=== PATIENT | male | born 1965 | race African-American/Black ===

== ENCOUNTER 2018-06-08 16:39 | Inpatient (IN) ==
[2018-06-08 17:23] LABS: INFLUENZA A NEGATIVE (NEGATIVE); INFLUENZA B NEGATIVE (NEGATIVE)
[2018-06-08] MEDS ORDERED: ROCEPHIN 1 GM in NS 50 ML IV ONE (19:03)
[2018-06-08] MEDS ORDERED: MOTRIN PO ONE (19:04)
--- NOTE | 2018-06-08 19:06 | Diag Imaging Result Doc PS360 ---
EXAM: CHEST-2 VIEWS - 06/08/2018 HISTORY: cough, fever, green sputum TECHNIQUE: Chest two views COMPARISON: 09/10/2011 FINDINGS: Heart size appears upper normal. There is transvenous cardiac pacemaker again seen. There is lobulated perihilar consolidation on the right. The remainder lungs appear essentially clear. There is mild thickening of fissures similar to prior. There is no substantial pleural effusion or pneumothorax identified. IMPRESSION: Lobulated perihilar consolidation on the right which may relate to pneumonia or other atypical infection. Follow-up after treatment is recommended to exclude underlying mass lesion. Electronically signed by Collins Gibbs 06/08/2018 7:04 PM
[2018-06-08] MEDS ORDERED: ROCEPHIN 1 GM in NS 50 ML IM ONE (19:07)
[2018-06-08] MEDS ORDERED: ROCEPHIN 2 GM in NS 50 ML IM ONE (19:12)
[2018-06-08] MEDS ORDERED: ROCEPHIN IM ONE (19:18)
[2018-06-08] MEDS ORDERED: XYLOCAINE-MPF 1% INJ ONE (19:18)
[2018-06-08 19:44] LABS: BASO# 0.02 X1000 (0.0-0.2); BASO% 0.1 % (0.0-0.8); EOS# 0.02 X1000 (0.0-0.7); EOS% 0.1 % (0.0-10.0); HEMATOCRIT 31.3 % (42.0-52.0); HEMOGLOBIN 10.4 g/dL (14.0-18.0); IMM GRAN# 0.03 X1000 (0.0-0.04); IMM GRAN% 0.2 % (0.0-0.5); LYMPH# 1.48 X1000 (1.2-3.4); LYMPH% 10.6 % (20.5-51.1); MCH 28.3 PG (27-31); MCHC 33.2 g/dL (33-37); MCV 85.1 FL (81-99); MONO# 0.67 X1000 (0.11-0.59); MONO% 4.8 % (1.7-9.3); NEUT% 84.2 % (42.2-75.2); PLT 203 X1000 (130-400); RBC 3.68 XMIL (4.7-6.1); RDW 13.4 % (11.5-14.5); WBC 14.02 X1000 (4.8-10.8)
[2018-06-08 19:55] LABS: CALCIUM 9.3 mg/dL (8.8-10.2); CREATININE 1.3 mg/dL (0.7-1.2); POTASSIUM 3.5 mmol/L (3.5-5.1)
[2018-06-08] MEDS ORDERED: NS 1,000 ML IV SCH (22:12)
[2018-06-08] MEDS ORDERED: TESSALON PO PRN (22:12)
[2018-06-08] MEDS ORDERED: TYLENOL PO PRN (22:12)
[2018-06-09] MEDS: COREG PO SCH ×3 (00:10→21:45)
[2018-06-09] MEDS: ZOSYN 3.375 GM in NS 50 ML IV SCH ×4 (00:57→17:09)
[2018-06-09] MEDS: DOXYCYCLINE 100 MG in NS 250 ML IV SCH ×3 (02:09→21:21)
--- NOTE | 2018-06-09 02:46 | PROVIDER DOCUMENTATION ---
This chart was entered by Marnie Guerra Scribe, acting as scribe for Chloé Fox MD. HPI-General Adult - General Chief Complaint: Cold Symptoms Stated Complaint: FEVER / COUGH Time Seen by Provider: 06/08/18 18:20 Source: patient Allergies/Adverse Reactions: Patient Allergies Allergy/AdvReac Type Severity Reaction Status Date / Time No Known Allergies Allergy Verified 04/01/16 09:42 Home Medications: Home Medication List Medication Instructions Recorded Confirmed Last Taken Type Aspirin 81 mg PO DAILY 04/01/16 06/09/18 04/01/16 09:00 History Carvedilol 12.5 mg PO BID 04/01/16 06/09/18 04/05/16 21:00 History Omeprazole 20 mg PO DAILY@0700 04/01/16 06/09/18 04/05/16 21:00 History Aripiprazole 15 mg PO DAILY 06/09/18 06/09/18 Unknown History Fluoxetine HCl 80 mg PO DAILY 06/09/18 06/09/18 Unknown History Gabapentin 400 mg PO QHS 06/09/18 06/09/18 Unknown History Insulin Aspart [Novolog] 36 units SQ TID AC 06/09/18 06/09/18 Unknown History Metformin HCl 1,000 mg PO BID CC 06/09/18 06/09/18 Unknown History Sacubitril/Valsartan [Entresto 24 1 tab PO BID 06/09/18 06/09/18 Unknown History mg-26 mg Tablet] - History of Present Illness -Gen Adult Nature of Presenting Problems: 52 yom presents to ed w/cc hoarseness, dizziness, productive cough w/greyish green phlegm, and fever since last night. pt has had sick contacts (). pt has no nasal congestion, headache. pt has hx of DM and takes insulin. Review of Systems - Adult - REVIEW OF SYSTEMS - ADULT Constitutional: reports: see HPI, fever. denies: chills, fatique, night sweats Eyes: reports: no symptoms reported Ears, Nose, Mouth & Throat: reports: see HPI, hoarseness. denies: ear pain, throat pain, throat swelling Cardiovascular: reports: no symptoms reported Respiratory: reports: see HPI, cough, excessive sputum production (greyish green phlegm). denies: pleurisy, shortness of breath, wheezing Gastrointestinal: reports: no symptoms reported Genitourinary: reports: no symptoms reported Musculoskeletal: reports: no symptoms reported Integumentary: reports: no symptoms reported Neurological: reports: no symptoms reported Psychiatric: reports: no symptoms reported Endocrine: reports: no symptoms reported Hematologic/Lymphatic: reports: no symptoms reported Allergic/Immunologic: reports: no symptoms reported All Other Systems: Reviewed and Negative Past History - Adult - PAST MEDICAL HISTORY-ADULT Review of Records: reports: Old Records Reviewed, Nursing Assessment Review, Medications Reviewed, Social history reviewed & non-contributory. Major Childhood Illnesses: reports: history unknown Cardiovascular: reports: HTN, ID, pacemaker Respiratory: reports: denies history Gastrointestinal: reports: denies history Obstetrical/Gynecological: reports: denies history Genitourinary: reports: denies history Musculoskeletal: reports: denies history Neurological: reports: denies history Endocrine/Immune: reports: Diabetes Diabetes Type: Type 1 Other Conditions: reports: denies history - PRIOR SURGERIES/PROCEDURES Surgical/Procedure History: reports: appendectomy, cardiac stent - IMMUNIZATION STATUS Childhood Immunizations: See Nurse Assessment Flu Vaccine: See Nurse Assessment - FAMILY HISTORY Family History: diabetes - SOCIAL HISTORY Smoking: chew Provider spent 3-5 mins advising pt. on dangers of tobacco.: Discussed manners to quit use, and f/u contacts for add'l counseling. Substance Use: none/never Physical Exam-General - PHYSICAL EXAM-ADULT Initial Vital Signs Reviewed: Yes - CONSTITUTIONAL General Appearance: appears well, alert, no apparent distress - EYES Eyes: PERRL/EOMI - HEAD, EARS, NOSE, MOUTH & THROAT HENMT: moist mucous membranes, TMs normal, pharynx normal, other (hoarseness of voice.). negative: pharyngeal erythema, tonsillar exudate, TM abnormal - NECK Neck: non-tender, full range of motion, supple - RESPIRATORY Respiratory: other (decrease breath sound on the rt side, no crackles or wheeze) - CARDIOVASCULAR Cardiovascular: normal peripheral pulses, regular rate, rhythm - GASTROINTESTINAL (ABDOMEN) Abdominal Exam: normal bowel sounds, non tender, soft - MUSCULOSKELETAL Extremity: normal range of motion, non-tender, normal inspection - NEUROLOGIC Neurologic: grossly normal, no motor/sensory deficits Progress - PLAN OF CARE/RESULTS Progress/Plan/Lab Results: Vital Signs - 8 hr 06/08/18 16:49 Temperature 101.7 F H Pulse Rate 89 Respiratory Rate 20 Blood Pressure 112/68 O2 Sat by Pulse Oximetry 96 Laboratory Results - last 24 hr 06/08/18 16:51 Influenza A (Rapid) NEGATIVE Influenza B (Rapid) NEGATIVE Orders Category Date Time Status Flu [INFLUENZA SCREEN PL] Stat Lab 06/08/18 16:51 Completed Result Diagrams: 06/08/18 19:39 06/08/18 19:39 - XRAY 1 XRAY: Bilateral (IMPRESSION: Lobulated perihilar consolidation on the right which may relate to pneumonia or other atypical infection. Follow-up after treatment is recommended to exclude underlying mass lesion. Electronically signed by Collins Gibbs 06/08/2018 7:04 PM) XRAY Study: Chest Impression: Abnormal - CONSULTS/PCP/HOSPITALIST Notification #1 *Consult/PCP/Hospitalist*: Dr. Sibley Time Discussed: 19:46 Consult Disposition: Admit (Hx, PE, Dx. discussed with Dr. Sibley, Accepted.) Departure - Departure Date of Disposition Decision: 06/08/18 Time of Disposition Decision: 19:46 DIAGNOSIS: Pneumonia Qualifiers: Pneumonia type: due to unspecified organism Laterality: right Lung location: unspecified part of lung Qualified Code(s): J18.9 - Pneumonia, unspecified organism Disposition: ADMITTED INPATIENT 09 Certified Medical Emergency: Emergent Condition: Stable - Critical Care Note This patient required my direct & personal management of CC.: No Attestation - Physician/ CLAYTON Attestation Patient care was provided by Advanced Practice Provider:: No The physician spent face to face time with patient:: Yes Advanced Practice Provider documentation review:: Supervising physician onsite and consulted in the evaluation and care of this patient. The physician did have a face to face encounter with the patient. This chart was documented by the indicated scribe, (Marnie Guerra Scribe) and accurately reflects the services I performed and decisions made by me, Chloé Fox MD, as attested by the provider's signature.
[2018-06-09 03:26] LABS: BLOOD TYPE ARTERIAL; SAMPLE BLOOD
[2018-06-09 03:28] LABS: BE 6.5 mmoll (-3.0-3.0); METHB 1.2 % (0.0-1.5); O2(CT) 6.6 mL/dL (15.0-23.0); O2HB 95.7 % (95.0-99.0); PCO2(98.6) 40 mmHg (35-45); PO2(98.6) 78 mmHg (60-100); SAO2 99.9 % (95.0-100.0); THB 4.8 g/dL (11.5-17.4); pH(98.6) 7.49 (7.35-7.45)
[2018-06-09 03:29] LABS: ALLEN TEST YES; MODALITY ROOM AIR
[2018-06-09 05:44] LABS: BASO# 0.01 X1000 (0.0-0.2); BASO% 0.1 % (0.0-0.8); EOS# 0.02 X1000 (0.0-0.7); EOS% 0.1 % (0.0-10.0); HEMATOCRIT 29.1 % (42.0-52.0); HEMOGLOBIN 9.5 g/dL (14.0-18.0); IMM GRAN# 0.05 X1000 (0.0-0.04); IMM GRAN% 0.3 % (0.0-0.5); LYMPH# 1.94 X1000 (1.2-3.4); LYMPH% 13.5 % (20.5-51.1); MCH 27.6 PG (27-31); MCHC 32.6 g/dL (33-37); MCV 84.6 FL (81-99); MONO# 0.78 X1000 (0.11-0.59); MONO% 5.4 % (1.7-9.3); MPV 10.8 FL (7.4-10.4); NEUT# 11.56 X1000 (1.4-6.5); NEUT% 80.6 % (42.2-75.2); PLT 189 X1000 (130-400); RBC 3.44 XMIL (4.7-6.1); RDW 13.5 % (11.5-14.5); WBC 14.36 X1000 (4.8-10.8)
[2018-06-09] MEDS: HUMALOG (PARKWAY) SUBQ SCH ×6 (06:12→21:46)
[2018-06-09 06:30] LABS: ALBUMIN 3.5 g/dL (3.5-5.0); CALCIUM 8.7 mg/dL (8.8-10.2); CREATININE 1.7 mg/dL (0.7-1.2); POTASSIUM 3.7 mmol/L (3.5-5.1); TOTAL BILIRUBIN 0.3 mg/dL (0.20-1.00); TOTAL PROTEIN 7.3 g/dL (6.3-8.3)
[2018-06-09] MEDS ORDERED: ALDACTONE PO SCH (09:00)
[2018-06-09] MEDS ORDERED: CRESTOR PO SCH (09:00)
[2018-06-09] MEDS ORDERED: PRINIVIL PO SCH (09:00)
[2018-06-09] MEDS ORDERED: WELLBUTRIN PO SCH (09:00)
[2018-06-09] MEDS ORDERED: NS 1,000 ML IV ONE (09:31)
[2018-06-09] MEDS: ASPIRIN PO SCH (09:42)
[2018-06-09] MEDS ORDERED: NS 500 ML IV ONE (09:44)
[2018-06-09] MEDS: PRILOSEC PO SCH (09:47)
[2018-06-09] MEDS: NS 1,000 ML IV SCH (10:20)
--- NOTE | 2018-06-09 10:44 | HISTORY AND PHYSICAL ---
PRIMARY CARE PHYSICIAN: Dr. Hernández. CHIEF COMPLAINT: Subjective fever, body aches, productive cough and dizziness that has progressively worsened over the last several days. HISTORY OF PRESENTING ILLNESS: This is a 52-year-old -[place] male who presents to [facility] ER with complaints of a subjective fever, body aches, a productive cough of green sputum and dizziness for the last several days that has progressively worsened. When he arrived to the emergency room, he had a temp of 101.7 degrees. White blood cell count was 14.02. His creatinine was 1.3. Repeat this morning went up to 1.7. His chest x-ray showed a lobulated perihilar consolidation on the right which may relate to pneumonia or other atypical infection so he was admitted to the medical unit for further evaluation and treatment. PAST MEDICAL HISTORY: 1. Diabetes type 2. 2. Hypertension. 3. WI. 4. Hyperlipidemia. 5. Depression. 6. GERD. 7. Congestive heart failure with last echo on 01/2017 showing an EF of 25-30% with severely reduced systolic function. PAST SURGICAL HISTORY: 1. Pacemaker defibrillator placement. 2. Appendectomy. 3. Heart stents. FAMILY HISTORY: Reviewed and noncontributory. SOCIAL HISTORY: Currently lives with family. Denies cigarette use but does chew tobacco. Denies any alcohol or illicit drug use. ALLERGIES: He has no known drug allergies. HOME MEDICATIONS: 1. Aripiprazole 15 mg p.o. daily. 2. Aspirin 81 mg p.o. daily. 3. Coreg 12.5 mg p.o. b.i.d. 4. Fluoxetine 80 mg p.o. daily. 5. Gabapentin 400 mg p.o. at bedtime. 6. NovoLog 36 units subcu t.i.d. before meals. 7. Metformin 1000 mg p.o. b.i.d. 8. Omeprazole 20 mg p.o. daily. 9. Entresto 24 mg/26 mg p.o. b.i.d. LABORATORY DATA: Showed a white blood cell count of 14.02, hemoglobin 10.4, hematocrit 31.3, platelets 203,000. ABG on room air showed a pH of 7.49, PCO2 of 40, PO2 78, bicarb 30.0. Sodium 136, potassium 3.5, chloride 96, CO2 28, BUN 11, creatinine 1.3, glucose 57. This morning, repeat labs showed a creatinine up to 1.7, glucose 148. Influenza A and B were both negative. Chest x-ray showed a lobulated perihilar consolidation on the right which may relate to pneumonia or other atypical infection. A followup after treatment recommended to exclude any underlying mass lesion. REVIEW OF SYSTEMS: He has a subjective fever, body aches, dizziness, productive cough of green sputum. Denied shortness of breath or chest pain. Denied any abdominal pain, constipation, diarrhea, burning or hurting with urination. PHYSICAL EXAMINATION: VITAL SIGNS: On arrival, he had a temp of 101.7 degrees, pulse 89, respirations 20, blood pressure 112/68, saturating 96% on room air. GENERAL: This is a 52-year-old -[place] male who is sitting up in the bed and answers questions appropriately. Temperature is noted to be down to 98.1 degrees. HEENT: Normocephalic, atraumatic. Normal ENT inspection. Oropharynx and nares are clear. Eyes: Pupils are equal, round and reactive to light and accommodation. Extraocular movements are intact. NECK: Normal inspection. Normal range of motion. LUNGS: Decreased breath sounds on the right side. Left was clear. Equal lung expansion and chest wall movement noted. HEART: Regular rate and rhythm. No murmurs, rubs or gallops. ABDOMEN: Soft, nontender, nondistended. Bowel sounds are present x4 quadrants. MUSCULOSKELETAL: He has 5/5 strength x4 extremities. NEUROLOGICAL: Cranial nerves 2-12 are grossly intact. ASSESSMENT: 1. Right perihilar pneumonia. 2. Leukocytosis. 3. Acute kidney injury. 4. Diabetes type 2. PLAN: He is being admitted to the medical unit at [facility], placed on a diabetic diet. We will do pattern blood sugars with sliding scale insulin. Placed on Tessalon Perles 200 mg p.o. t.i.d. p.r.n., doxycycline 100 mg IV q.12. We are going to give a 500 mL bolus of normal saline and then do normal saline at 100 mL an hour. Due to his congestive heart failure, I do not want to overload. He is also on Zosyn 3.375 grams IV q.6 and we will recheck a CBC, BMP in the a.m. Blood cultures x2 are pending. Further orders after seen by attending. Dictated by AMELIA Herman for Estelle Sibley MD cc: AMELIA Herman MD Hiteshri S. Bhavsar, MD
[2018-06-09] MEDS: DUONEB (A & A) INH SCH ×4 (11:48→23:38)
--- NOTE | 2018-06-09 14:00 | HISTORY AND PHYSICAL ---
ADDENDUM: I saw the patient [id number] and fully agree with the assessment and plan of nurse practitioner, Bernie Gupta. This is a patient with right perihilar pneumonia with leukocytosis and acute kidney injury with history of type 2 diabetes mellitus. The patient has been admitted and has been started on Zosyn, along with doxycycline intravenously. We will give him lispro insulin as per sliding scale and provide him supportive care. Further recommendations will be given as per hospital course. cc: Estelle Sibley MD
[2018-06-09] MEDS: GLUCOPHAGE PO SCH (17:08)
[2018-06-09] MEDS ORDERED: NEURONTIN PO SCH (21:00)
[2018-06-09] MEDS: NEURONTIN PO SCH (21:19)
[2018-06-09] MEDS: ENTRESTO 24 MG-26 MG TABLET PO SCH (21:20)
[2018-06-09] MEDS: CRESTOR PO SCH (21:20)
[2018-06-09] MEDS: SUBOXONE 8 MG/2 MG FILM SL SCH (21:25)
[2018-06-09] MEDS ORDERED: SEROQUEL PO PRN (22:18)
[2018-06-10] MEDS: DUONEB (A & A) INH SCH ×6 (04:00→23:15)
[2018-06-10] MEDS: ZOSYN 3.375 GM in NS 50 ML IV SCH ×7 (04:20→23:14)
[2018-06-10] MEDS: HUMALOG (PARKWAY) SUBQ SCH ×7 (06:55→20:33)
[2018-06-10 07:38] LABS: BASO# 0.02 X1000 (0.0-0.2); BASO% 0.2 % (0.0-0.8); EOS% 1.6 % (0.0-10.0); HEMATOCRIT 29.1 % (42.0-52.0); HEMOGLOBIN 9.4 g/dL (14.0-18.0); IMM GRAN# 0.03 X1000 (0.0-0.04); IMM GRAN% 0.2 % (0.0-0.5); LYMPH# 2.06 X1000 (1.2-3.4); LYMPH% 16.5 % (20.5-51.1); MCH 27.6 PG (27-31); MCHC 32.3 g/dL (33-37); MCV 85.6 FL (81-99); MONO# 0.43 X1000 (0.11-0.59); MONO% 3.5 % (1.7-9.3); MPV 10.5 FL (7.4-10.4); NEUT# 9.71 X1000 (1.4-6.5); PLT 182 X1000 (130-400); RDW 14.1 % (11.5-14.5); WBC 12.45 X1000 (4.8-10.8)
[2018-06-10 07:57] LABS: CALCIUM 8.4 mg/dL (8.8-10.2); CREATININE 1.3 mg/dL (0.7-1.2); POTASSIUM 3.8 mmol/L (3.5-5.1)
[2018-06-10] MEDS ORDERED: SUBOXONE 8 MG/2 MG FILM SL SCH ×2 (09:00)
[2018-06-10] MEDS: DOXYCYCLINE 100 MG in NS 250 ML IV SCH (09:15)
[2018-06-10] MEDS: SUBOXONE 8 MG/2 MG FILM SL SCH ×3 (09:15→20:34)
[2018-06-10] MEDS: GLUCOPHAGE PO SCH ×2 (09:15→17:46)
[2018-06-10] MEDS: ABILIFY PO SCH (09:15)
[2018-06-10] MEDS: COREG PO SCH ×2 (09:16→20:39)
[2018-06-10] MEDS: PROZAC PO SCH (09:16)
[2018-06-10] MEDS: ENTRESTO 24 MG-26 MG TABLET PO SCH ×2 (09:16→20:35)
[2018-06-10] MEDS: ASPIRIN PO SCH (09:16)
[2018-06-10] MEDS: PRILOSEC PO SCH (09:16)
[2018-06-10] MEDS: NS 1,000 ML IV SCH (10:24)
--- NOTE | 2018-06-10 12:33 | PROGRESS NOTE ---
DATE: 06/10/2018 SUBJECTIVE: Patient denies having any acute complaints this morning. OBJECTIVE: Vital Signs: Temperature 98 degrees, pulse 84 per minute, respiratory rate 18 per minute, blood pressure 103/70, pulse oximetry 98% on room air. General: Patient is alert and oriented x3. He does not appear to be in any acute distress. Cardiovascular System: First and second heart sounds are audible without any murmurs or gallops. Respiratory System: Bilateral lung air entry is slightly decreased but there are no rales or rhonchi present on auscultation. Gastrointestinal system: Abdomen is soft and nondistended. Normal bowel sounds are present. DIAGNOSTIC DATA: CBC shows WBC count of 12.45, hemoglobin 9.4, hematocrit 29.1, and platelet count of 182,000. Chemistry shows creatinine of 1.3 which is actually improved from 1.7, that was yesterday. Glucose levels are found to be 174. Rest of the basic metabolic panel is nondiagnostic. Chest x-ray done 2 days ago showed lobulated perihilar consolidation on the right. IMPRESSION: 1. Right perihilar pneumonia, rule out lung mass. 2. Acute kidney injury, that has improved. 3. Type 2 diabetes mellitus. 4. Nonischemic cardiomyopathy. PLAN: I am going to obtain CT scan of the chest with contrast for further evaluation. Meanwhile, we will continue with Zosyn along with doxycycline intravenously. We will also continue with bronchodilators and continue giving him lispro insulin as per sliding scale to control his glucose levels. He has nonischemic cardiomyopathy for which we will continue with Entresto and carvedilol, along with aspirin and give him a lower rate of IV fluid at 50 mL an hour of normal saline to make sure he does not get into fluid overload. Further recommendations will be given as per hospital course. cc: Estelle Sibley MD
[2018-06-10 13:37] LABS: IRON SATURATION 22 %; TIBC 201 ug/dL; TOTAL IRON 45 ug/dL (53-167); UNBOUND IRON 156 ug/dL (112-346)
[2018-06-10 15:26] LABS: OCCULT BLOOD 1 NEGATIVE (NEGATIVE)
[2018-06-10] MEDS: NEURONTIN PO SCH (20:35)
[2018-06-10] MEDS: CRESTOR PO SCH (20:35)
[2018-06-11] MEDS: DOXYCYCLINE 100 MG in NS 250 ML IV SCH (00:16)
[2018-06-11] MEDS: DUONEB (A & A) INH SCH ×3 (03:19→11:47)
[2018-06-11] MEDS: ZOSYN 3.375 GM in NS 50 ML IV SCH ×2 (04:06→09:56)
[2018-06-11] MEDS: HUMALOG (PARKWAY) SUBQ SCH ×4 (07:16→11:59)
[2018-06-11 07:33] LABS: BASO# 0.02 X1000 (0.0-0.2); BASO% 0.2 % (0.0-0.8); EOS# 0.17 X1000 (0.0-0.7); EOS% 1.5 % (0.0-10.0); HEMATOCRIT 29.5 % (42.0-52.0); HEMOGLOBIN 9.5 g/dL (14.0-18.0); IMM GRAN# 0.02 X1000 (0.0-0.04); IMM GRAN% 0.2 % (0.0-0.5); LYMPH# 2.25 X1000 (1.2-3.4); LYMPH% 19.6 % (20.5-51.1); MCH 27.9 PG (27-31); MCHC 32.2 g/dL (33-37); MCV 86.8 FL (81-99); MONO# 0.45 X1000 (0.11-0.59); MONO% 3.9 % (1.7-9.3); MPV 11.3 FL (7.4-10.4); NEUT# 8.56 X1000 (1.4-6.5); NEUT% 74.6 % (42.2-75.2); PLT 167 X1000 (130-400); RDW 14.5 % (11.5-14.5); WBC 11.47 X1000 (4.8-10.8)
[2018-06-11 08:03] LABS: AGAP 13; BUN 9 mg/dL (8-22); CALCIUM 8.4 mg/dL (8.8-10.2); CHLORIDE 103 mmol/L (98-107); COSMO 281; CREATININE 1.1 mg/dL (0.7-1.2); ESTIMATED GFR > 60; GLUCOSE 158 mg/dL (70-104); POTASSIUM 3.8 mmol/L (3.5-5.1); SODIUM 140 mmol/L (136-145); TCO2 24 mmol/L (25-35)
--- NOTE | 2018-06-11 08:03 | Diag Imaging Result Doc PS360 ---
EXAM: CT THORAX W/CONTRAST HISTORY: pneumonia r/o lung mass TECHNIQUE: CT chest with intravenous contrast COMPARISON: None. FINDINGS: There are dense infiltrates in the right upper and right lower lobes. Trace left pleural fluid with a small right pleural effusion measuring 2.2 cm posteriorly and inferiorly in the midline. No thoracic aortic aneurysm or dissection. Mild cardiomegaly. There is a left sided pacemaker. Mildly enlarged mediastinal lymph nodes. There are calcified right hilar lymph nodes with a right lower lobe granuloma. No bronchiectasis. Limited images through the upper abdomen reveal fatty infiltration of the liver. IMPRESSION: Multifocal pneumonia This exam was performed using automated exposure control, adjustment of mA or kV according to patient size, and/or use of iterative reconstruction technique. Electronically signed by Asher Valdivia 06/11/2018 8:00 AM
[2018-06-11] MEDS ORDERED: DOXYCYCLINE PO SCH (09:00)
[2018-06-11] MEDS: ENTRESTO 24 MG-26 MG TABLET PO SCH (09:57)
[2018-06-11] MEDS: PRILOSEC PO SCH (09:57)
[2018-06-11] MEDS: SUBOXONE 8 MG/2 MG FILM SL SCH ×2 (09:57→12:56)
[2018-06-11] MEDS: PROZAC PO SCH (09:57)
[2018-06-11] MEDS: ABILIFY PO SCH (09:57)
[2018-06-11] MEDS: ASPIRIN PO SCH (09:58)
[2018-06-11] MEDS: COREG PO SCH (09:58)
[2018-06-11 11:58] VITALS: BP 113/76
[2018-06-11] MEDS ORDERED: D5W 50 ML IV ONE (14:00)
--- NOTE | 2018-06-12 05:38 | DISCHARGE SUMMARY ---
ADMISSION DATE: 06/08/2018 DISCHARGE DATE: 06/11/2018 DISCHARGE DIAGNOSES: 1. Right perihilar pneumonia, improved. 2. Mild pleural effusion, stable. 3. Nonischemic cardiomyopathy. 4. Diabetes. 5. Acute kidney injury, resolved. CONSULTATIONS: None. PROCEDURES: None. BRIEF HOSPITAL COURSE: Patient is a 52-year-old who presented to [facility] with cough, congestion, shortness of breath, subsequently diagnosed with perihilar pneumonia as well as a small pleural effusion. He was admitted to the hospital, antibiotics, IV fluids, oxygen, breathing treatments. Thankfully, he had uneventful hospital course. On discharge he is awake, alert. He is in no distress. DISPOSITION: Patient is discharged on doxycycline and Omnicef, for the next 5 days total. He will follow up outpatient with treatment facility of choice. Discussed with patient perils of smoking as well as importance of avoiding smoke exposure. cc: Zay Smith MD
[2018-06-12] MEDS ORDERED: PRILOSEC PO SCH (07:00)
== END 2018-06-11 15:54 | disposition home or self-care (01) | DRG 194 ==
LOC: P.ED 16:39 → SUATTDRO 20:45 → P.MEDSURG 20:45
PROVIDERS: ATTEND Family Medicine
CPT/HCPCS: 71020; 71046; 71260; 80048; 80053; 82270; 82272; 82607; 82728; 82746; 82805; 82948; 83540; 83550; 85025; 87040; 87275; 87276; 87804; 94640; 94799; 96374; 99285; A9270; J0696; J1815; J2543; J7030; J7040; J7050; Q9967; XXXXX